=== PATIENT | male | born 1985 ===

== ENCOUNTER → 2017-06-14 | Outpatient (CLI) | payer SELFPAY | LOC: LAB SHORT 13:00 → LAB EV 13:00 | DX: Z48.816 Encounter for surgical aftercare following surgery on the genitourinary system (principal); Z98.52 Vasectomy status ==

== ENCOUNTER 2022-06-19 06:13 | Day surgery (SDC) | payer BC ==
[~2022-06-19] VITALS: Ht 177.8 cm; Wt 92.2 kg
--- NOTE | 2022-06-19 09:47 | NUR ---
06/19/22 0947 Lanny Huang 0924 PT UP TO RECLINER WITHOUT DIFFICULTY. C/O 9/10 PAIN IN OPERATIVE FOOT. VSS. AT BEDSIDE. WILL MEDICATE FOR PAIN PER ORDERS. PT DENIES FURTHER NEEDS. WILL CONTINUE TO MONITOR
== END 2022-06-19 10:30 | disposition home or self-care (01) ==
LOC: ORSCSDS 06:13
PROVIDERS: Podiatrist Foot & Ankle Surgery
PROC: 0SGN04Z Fusion of Left Metatarsal-Phalangeal Joint with Internal Fixation Device, Open Approach (ICD-10-PCS; principal; 2022-06-19 07:30)
DX: M21.612 Bunion of left foot (principal); M77.42 Metatarsalgia, left foot
CPT/HCPCS: A9270; C1713; J0171; J0690; J1100; J2250; J2405; J2704; J2795; J3010; J7120